=== PATIENT | female | born 1930 | race Caucasian/White ===

== ENCOUNTER 2017-09-19 | Emergency (ER) | payer OTHER ==
--- NOTE | 2017-09-19 14:45 | EDPHYS ---
Physician Documentation [facility] Name: Tenisha Etienne Age: 87 yrs Sex: Female : 1930 Arrival Date: 09/19/2017 Time: 14:15 Bed 24 Private MD: ED Physician Jacoby De León HPI: 09/19 15:08 This 87 yrs old Female presents to ER via Ambulatory with complaints of Eye jr8 Problem. 15:08 The patient is experiencing pain, redness. Onset: The symptoms/episode began/occurred jr8 gradually, 2 week(s) ago. Duration: the symptoms are continuous. Aggravated by opening eye, Alleviated by nothing. Associated signs and symptoms: Pertinent negatives: chills, dizziness, ear ache, fever, headache, runny nose. Patient wears glasses. Severity of symptoms: At their worst the symptoms were mild in the emergency department the symptoms are unchanged. The patient has experienced similar episodes in the past, a few times. The patient has not recently seen a physician. Patient stated that she gets itchy red eyes from time to time. Usually uses OTC eye drops which helps but that this time her right eye is more persistent and is not being relieved by OTC medication . Historical: - Allergies: 14:22 ambien; hb - PMHx: 14:22 Hypertension; hb - Immunization history:: Adult Immunizations up to date. - Social history:: Smoking status: Patient/guardian denies using tobacco. ROS: 15:08 ENT: Negative for injury, pain, and discharge, Neck: Negative for injury, pain, and jr8 swelling, Cardiovascular: Negative for chest pain, palpitations, and edema, Respiratory: Negative for shortness of breath, cough, wheezing, and pleuritic chest pain, Abdomen/GI: Negative for abdominal pain, nausea, vomiting, diarrhea, and constipation, Back: Negative for injury and pain, MS/Extremity: Negative for injury and deformity, Skin: Negative for injury, rash, and discoloration, Neuro: Negative for headache, weakness, numbness, tingling, and seizure. 15:08 Eyes: Positive for itching, pain, redness, of the right eye. Exam: 15:08 Head/Face: Normocephalic, atraumatic. ENT: Nares patent. No nasal discharge, no jr8 septal abnormalities noted. Tympanic membranes are normal and external auditory canals are clear. Oropharynx with no redness, swelling, or masses, exudates, or evidence of obstruction, uvula midline. Mucous membranes moist. Neck: Trachea midline, no thyromegaly or masses palpated, and no cervical lymphadenopathy. Supple, full range of motion without nuchal rigidity, or vertebral point tenderness. No Meningismus. Cardiovascular: Regular rate and rhythm with a normal S1 and S2. No gallops, murmurs, or rubs. Normal PMI, no JVD. No pulse deficits. Respiratory: Lungs have equal breath sounds bilaterally, clear to auscultation and percussion. No rales, rhonchi or wheezes noted. No increased work of breathing, no retractions or nasal flaring. Abdomen/GI: Soft, non-tender, with normal bowel sounds. No distension or tympany. No guarding or rebound. No evidence of tenderness throughout. Back: No spinal tenderness. No costovertebral tenderness. Full range of motion. Skin: Warm, dry with normal turgor. Normal color with no rashes, no lesions, and no evidence of cellulitis. MS/ Extremity: Pulses equal, no cyanosis. Neurovascular intact. Full, normal range of motion. Neuro: Awake and alert, GCS 15, oriented to person, place, time, and situation. Cranial nerves II-XII grossly intact. Motor strength 5/5 in all extremities. Sensory grossly intact. Cerebellar exam normal. Normal gait. 15:08 Eyes: Periorbital structures: appear normal, Pupils: equal, round, and reactive to light and accomodation, Extraocular movements: intact throughout, Conjunctiva: injected, in the right eye, Sclera: no appreciated abnormality, Anterior chamber: normal, Lids and lashes: appear normal. Vital Signs: 14:20 BP 173 / 88; Pulse 83; Resp 16; Temp 98.3; Pulse Ox 100% on R/A; Pain 5/10; hb MDM: 14:25 Patient medically screened. [facility] 14:43 Data reviewed: vital signs, nurses notes, and as a result, I will discharge patient. jr8 Data interpreted: Pulse oximetry: on room air is 100 %. Interpretation: normal. Counseling: I had a detailed discussion with the patient and/or guardian regarding: the historical points, exam findings, and any diagnostic results supporting the discharge/admit diagnosis, the need for outpatient follow up, an opthalmologist, to return to the emergency department if symptoms worsen or persist or if there are any questions or concerns that arise at home. Administered Medications: No medications were administered Disposition: 09/19/17 14:44 Discharged to Home. Impression: Conjunctivitis. - Condition is Stable. - Prescriptions for Gentamicin 0.3 % Ophthalmic Drops - instill 2 drops by OPHTHALMIC route every 4 hours for 7 days; 1 bottle. olopatadine 0.1 % Ophthalmic drops - instill 1 drop by OPHTHALMIC route 2 times per day; 1 bottle. - Medication Reconciliation Form, Thank You Letter, Antibiotic Education, Prescription Opioid Use form. - Follow up: Frank Garcia MD; When: 1 week; Reason: Recheck today's complaints, Continuance of care, Re-evaluation by your physician. - Problem is new. - Symptoms have improved. Addendum: 09/21/2017 08:12 Co-signature as Attending Physician, Jacoby De León MD I agree with the assessment and c bunn plan of care. Signatures: Jacoby De León MD MD cha Roszak, Josh, PA PA jr8 Dione Garcia, RN RN Rosi Jacobson RN RN kr2
--- NOTE | 2017-09-19 14:45 | ER ---
Nurse's Notes [facility] Name: Tenisha Etienne Age: 87 yrs Sex: Female : 1930 Arrival Date: 09/19/2017 Time: 14:15 Bed 24 Private MD: Diagnosis: Conjunctivitis Presentation: 09/19 14:19 Presenting complaint: Patient states: RIGHT eye pain and itchy ears x 1 week, hb intermittent headache x 3 days. Transition of care: patient was not received from another setting of care. Onset of symptoms is unknown. Care prior to arrival: None. 14:19 Method Of Arrival: Ambulatory hb 14:19 Acuity: DEVIKA 4 hb Historical: - Allergies: 14:22 ambien; hb - PMHx: 14:22 Hypertension; hb - Immunization history:: Adult Immunizations up to date. - Social history:: Smoking status: Patient/guardian denies using tobacco. Screenin:11 Abuse screen: Denies threats or abuse. Denies injuries from another. Nutritional kr2 screening: No deficits noted. Tuberculosis screening: No symptoms or risk factors identified. Fall Risk None identified. Assessment: 14:30 General: Appears in no apparent distress. comfortable, well groomed, well developed, kr2 well nourished, Behavior is calm, cooperative, appropriate for age. Pain: Denies pain. Neuro: Level of Consciousness is awake, alert, obeys commands, Oriented to person, place, situation. Cardiovascular: Capillary refill < 3 seconds in bilateral fingers Patient's skin is warm and dry. Respiratory: Airway is patent Respiratory effort is even, unlabored, Respiratory pattern is regular, symmetrical. EENT: Eyes redness noted to right eye. Derm: Skin is intact, is healthy with good turgor, Skin is pink, warm \T\ dry. Musculoskeletal: Circulation, motion, and sensation intact. Vital Signs: 14:20 BP 173 / 88; Pulse 83; Resp 16; Temp 98.3; Pulse Ox 100% on R/A; Pain 5/10; hb ED Course: 14:15 Patient arrived in ED. as 14:20 Triage completed. hb 14:20 Arm band placed on left wrist. hb 14:25 Golden Armenta PA is PHCP. jr8 14:25 Jacoby De León MD is Attending Physician. jr8 14:31 Indira, Rosi, RN is Primary Nurse. kr2 14:44 Frank Garcia MD is Referral Physician. jr8 15:11 Patient has correct armband on for positive identification. Bed in low position. Call kr2 light in reach. Side rails up X2. Pulse ox on. NIBP on. Door closed. Warm blanket given. Head of bed elevated. 15:16 No provider procedures requiring assistance completed. Patient did not have IV access kr2 during this emergency room visit. Administered Medications: No medications were administered Outcome: 14:44 Discharge ordered by . jr8 15:16 Discharged to home ambulatory, with family. kr2 15:16 Condition: good 15:16 Discharge instructions given to patient, family, Instructed on discharge instructions, follow up and referral plans. medication usage, Demonstrated understanding of instructions, follow-up care, medications, Prescriptions given X 2. 15:17 Patient left the ED. kr2 Signatures: Zakia Mcnally Josh, PA PA jr8 Dione Garcia RN RN Rosi Jacobson, KIM RN kr2
== END 2017-09-19 15:17 | disposition home or self-care (01) ==
CPT/HCPCS: 99283